=== PATIENT | female | born 2000 | race Caucasian/White ===

== ENCOUNTER 2024-04-23 21:56 | Emergency (ER) | payer BC, SELFPAY ==
[2024-04-23 22:00] VITALS: BP 99/86
[2024-04-23 22:26] LABS: % Basophils 0.2 % (0-2); % Eosinophils 0.3 % (0-6); % Immature Granulocytes 0.4 % (0-0.5); % Lymphocytes 4.1 % (20.5-51.1); % Monocytes 6.6 % (1.7-9.3); % Neutrophils 88.4 % (42.2-75.2); Absolute Eosinophils 0.1 10^3/uL (0-0.7); Absolute Immature Granulocytes 0.1 10^3/uL (0-0.05); Absolute Lymphocytes 0.8 10^3/uL (1.2-3.4); Absolute Monocytes 1.3 10^3/uL (0.1-0.6); Absolute Neutrophils 17.9 10^3/uL (1.4-6.5); Hematocrit 41.9 % (37.0-47.0); Hemoglobin 13.9 g/dL (12.0-16.0); Mean Corp Hgb Conc. 33.2 g/dL (33.0-37.0); Mean Corpuscular Hgb 27.3 pg (27.0-31.0); Mean Corpuscular Volume 82.2 fL (81.0-99.0); Mean Platelet Volume 9.6 fL (7.4-10.4); Nucleated Red Blood Cells % 0 %; Platelet Count 366 10^3/uL (130-400); Red Cell Dist. Width 12.9 % (11.5-14.5); White Blood Cell Count 20.2 10^3/uL (4.8-10.8)
[2024-04-23 22:35] LABS: HCG, Serum Qualitative Screen Negative
[2024-04-23 22:41] LABS: ALT (SGPT) 27 U/L (0-35); AST (SGOT) 23 U/L (14-36); Alkaline Phosphatase 70 U/L (38-126); Blood Urea Nitrogen 14 mg/dl (7-17); Calcium 9.6 mg/dl (8.4-10.2); Carbon Dioxide 23 mmol/L (22-30); Chloride 100 mmol/L (98-107); Glucose 122 mg/dl (70-99); Potassium 3.8 mmol/L (3.5-5.1); Sodium 136 mmol/L (135-145); Total Bilirubin 0.4 mg/dl (0.2-1.3); Total Protein 8.3 g/dl (6.3-8.2); eGFR > 60.00
--- NOTE | 2024-04-24 00:27 | ED.GENMED ---
History of Present Illness
General
Chief Complaint: Headache
Source: patient and family
Exam Limitations: none
Time Seen by Provider: 04/23/24 23:51
History of Present Illness
History of Present Illness:
This is a 23 year old female that comes in with c/o headache. State that she started with a headache on Monday. States that this was a sharp pain and pressure in her hear. States that with all her problems she thought she would rest and it would
go away. States that it never got better, it got worse. States that it goes form the front of her head, sometimes down into her face and all over her head. States that this is different then her migraines. States that she is always SOB that this has
been going on for a year. States that she has been nauseated and vomited once tonight and had diarrhea once today. States that she feel lightheaded with the headache. States that she also has some left sided low back discomfort. Denies any fever,
chills, chest pain, abd pain, urinary burning.
Past History
Past History
ED Past Medical History: Other (Migraines, loss of memory); Negative Asthma, HTN, Hypercholesterolemia or NIDDM
ED Past Surgical History: Other (Myringotomy tubes)
Social History
Tobacco: Non-smoker
Alcohol: None
Personal: Single
Living: with family
Review of Systems
Review of Systems
All Other Systems: ROS reviewed and negative except as documented in HPI and ROS
Constitutional: Reports no symptoms; Denies fever or chills
EENT: Reports no symptoms
Respiratory: Reports trouble breathing (Chronic); Denies cough
Cardiac: Denies chest pain
ABD/GI: Reports nausea, vomiting and diarrhea; Denies abdominal pain
: Reports no symptoms; Denies dysuria or urgency
Musculoskeletal: Reports no symptoms
Skin: Reports no symptoms
Neurological: Reports headache and other (lightheaded)
Psychiatric: Reports no symptoms
Phy Exam
General Physical Exam
General Presentation: no apparent distress
General age: appears stated age
General Skin: warm and dry
General Habitus: normal
General Mental: alert
General Hydration: appears well hydrated
ENT Exam
ENT Exam: TM's normal, pharynx normal and neck supple
Eye Exam
Eye Exam: EOMI
Cardiovascular Exam
Cardiovascular Exam: regular rate/rhythm, no edema, no murmur and normal peripheral pulses
Pulmonary Exam
Pulmonary Exam: no rales, chest non tender, no crackles, no rhonchi, no wheezing, no cough and decreased breath sounds
Gastrointestinal Exam
Gastrointestinal Exam: normal bowel sounds, non tender, soft, no organomegaly, no pulsatile mass, non distended and no cva tenderness
Musculoskeletal Exam
Musculoskeletal Exam: full ROM and no edema
Skin Exam
Skin Exam: normal color, warm/dry, no rash and no petechia
Psychiatric Exam
Psychiatric Exam: normal mood/affect
Course
Orders/Labs/Results
Orders:
Orders
04/23/24 22:06
EKG [Electrocardiogram (*1)] Urgent
Reason for Study: Vertigo / Dizzy
EKG- Treatment ONCE
Test Result ONCE
04/23/24 22:13
C-Reactive Protein Urgent
Comment: ADD ON
Complete Blood Count/With Diff Urgent
Comprehensive Metabolic Panel Urgent
Erythrocyte Sed Rate Urgent
Comment: ADD ON
HCG, Serum Qualitative Screen Urgent
04/23/24 23:53
Urinalysis Reflex To Culture Urgent
Date Specimen was Collected: 04/24/24
Time Specimen was Collected: 00:51
04/24/24 00:26
0.9% Sodium Chloride 1000 ml [Nss] 1,000 ml IV BOLUS
Acetaminophen 1000MG/100Ml [Ofirmev] 1,000 mg in 100 ml IV ONCE
Acetaminophen IV Indication:: ED Narcotic Naive Pt-ONCE
Dexamethasone Sod Phosphate [Decadron] 20 mg IV NOW STA
Ketorolac [Toradol] 30 mg IV NOW STA
Ondansetron Injectable [Zofran] 4 mg IV NOW STA
04/24/24 00:28
Add On- LAB Urgent
Tests Added?: Sed rate CRP
04/24/24 00:40
CT Head W/o Iv Contrast Urgent
Comment: Different then her migraines
Reason For Exam: Headache since monday
04/24/24 00:52
Urine Microscopic Reflex Cult Urgent
Abnormal Lab Results
04/23/24 04/24/24
22:13 00:52
WBC 20.2 H 10^3/uL
(4.8-10.8)
Abs Immat Gran (auto) 0.1 H 10^3/uL
(0-0.05)
Absolute Neuts (auto) 17.9 H 10^3/uL
(1.4-6.5)
Absolute Lymphs (auto) 0.8 L 10^3/uL
(1.2-3.4)
Absolute Monos (auto) 1.3 H 10^3/uL
(0.1-0.6)
Neutrophils % 88.4 H %
(42.2-75.2)
Lymphocytes % 4.1 L %
(20.5-51.1)
Glucose 122 H mg/dl
(70-99)
Total Protein 8.3 H g/dl
(6.3-8.2)
Urine Ketones 3+ A
(Negative)
Ur Occult Blood Reflex 1+ A
(Negative)
04/23/24 22:13
04/23/24 22:13
Leukocytosis (dad states that this is chronic), hyperglycemia, Total protein slightly elevated. HCG negative
Vital Signs
Initial and Last Documented VS:
Initial Vital Signs
Temp Pulse Resp BP Pulse Ox
97.8 F 68 17 99/86 96
04/23/24 22:00 04/23/24 22:00 04/23/24 22:00 04/23/24 22:00 04/23/24 22:00
Last Documented Vital Signs
Temp Pulse Resp BP Pulse Ox
97.8 F 68 17 99/86 96
04/23/24 22:00 04/23/24 22:00 04/23/24 22:00 04/23/24 22:00 04/23/24 22:00
MDM/Problems Addressed
Differential Diagnosis Includes:
Migraines.
MDM/Problems Addressed:
This is a 23 year old female that comes in with c/o headache that started since Monday. States that this is different then her normal migraine pain. Dad states that her SOB is also chronic and she has been everywhere for them to figured this out
as it started a year ago after the memory loss form a Kidney infection.
Will check labs. CT head, Give IV fluids and pain medication for patient headache.
Back into see patient. Explained that her CT of the head is normal. Her blood work shows the elevation of the WBC which patient Dad states that this has been up. Patient urine is negative for infection but does have some blood. Encouraged patient
to increase her water intake to 8-8oz glasses daily. Follow up with the Neurologist as scheduled. Return with any concerns.
Chronic conditions affecting care:
Migraines
Acute Exacerbation and/or Progression of Chronic Illness:
Migraines
*Radiology
Radiology exam reviewed: radiology read reviewed (CT head night hawk- No acute hemorrhage, herniation, or hydrocephalus. No calvarial fracture. The visualized paranasla sinuses and mastoid air cells are clear. )
*Pulse Oximetry
Patient hypoxic: no
*EKG
Interpreted by ED Provider?: Yes
Heart Rate: 107
Rate: tachycardiac
Rhythm: sinus tachycardia
[place]: normal axis
Interval: normal interval
QRS Pattern: normal QRS
Ischemia: no ischemia
*Pile D[employer] [place]zzleman Interpretation
Rate: P[place] D[employer] [place]zzleman- N/A
*Critical Care Note
Total Time (30-74mins, 75-104mins- exclusive of procedures): Not Applicable
ED Attending Note
-
Portions of this chart may have been created with voice recognition software.� Occasional wrong word or��sound alike� substitutions may have occurred due to the inherent limitations of voice recognition software.
Discharge Plan
Departure
Patient Disposition: Home (Routine Discharge)
Date of Disposition: 04/24/24
Time of Disposition: 02:08
Patient with high blood pressure during this ER visit?: No
Condition: Good
Covid-19: Not Applicable
Discharge Problem:
Headache
Instructions: Headache, Adult (DC)
Referrals:
Janice Mcgovern MD [Family Provider] - Follow up in 2-3 days
Activity Restrictions/Additional Instructions:
As discussed, your blood work shows that elevation of the White blood cells. Your inflammatory markers are normal. Your urine is negative for infection. However there is some blood noted. Please increase your water intake to 8-8oz glasses daily.
You may use Tylenol 1000mg every 6 hours for headache pain and alternate with Ibuprofen 600mg every 6 hours with food for pain. Follow up with the family doctor for recheck. IF YOU HAVE ANY OTHER CONCERN PLEASE RETURN TO THE EMERGENCY ROOM .
Interventions
Interventions:
*Risk Screen - Suicide Last Done: 04/23/24 22:05
*General Assessment Last Done: 04/23/24 22:05
*Neglect/Abuse Screening Last Done: 04/23/24 22:05
*ED COVID-19 Vaccine History Last Done: 04/23/24 22:05
Discharge Date and Time
Print Language: CHADIAN
[2024-04-24 00:43] VITALS: BMI 32.5
[2024-04-24 01:00] VITALS: BP 106/82
[2024-04-24] MEDS: DECADRON 20 MG IV (01:22)
[2024-04-24] MEDS: ZOFRAN 4 MG IV (01:22)
[2024-04-24] MEDS: TORADOL 30 MG IV (01:23)
[2024-04-24] MEDS: OFIRMEV 100 IV (01:26)
[2024-04-24] MEDS: NSS 1000 IV (01:27)
[2024-04-24 01:34] LABS: Erythrocyte Sed Rate 12 mm/hour (0-20)
[2024-04-24 01:49] LABS: Urine Albumin Trace (Neg - Trace); Urine Bilirubin Negative (Negative); Urine Character Clear (Clear); Urine Color Yellow; Urine Glucose Negative (Negative); Urine Ketone 3+ (Negative); Urine Leukocyte Negative (Negative); Urine Nitrite Negative (Negative); Urine Occult Blood 1+ (Negative); Urine Specific Gravity 1.015 (<1.030); Urine Urobilinogen Negative (Neg - 1+)
[2024-04-24 02:27] LABS: Urine Amorphous Seen; Urine Bacteria Many (Negative); Urine Mucus Moderate; Urine Squamous Cell >30 /LPF (Few)
[2024-04-24 02:53] VITALS: BP 106/78
== END 2024-04-24 02:57 | disposition home or self-care (01) ==
LOC: EMR 21:56
PROVIDERS: Clinical Nurse Specialist Family Health; Emergency Medicine; EMERGENCY PHYSICIAN Student in an Organized Health Care Education/Training Program; FAMILY PHYSICIAN Family Medicine
DX: R51.9 Headache, unspecified (principal); R11.2 Nausea with vomiting, unspecified
CPT/HCPCS: 96374; 96375; 96361; 99284; 70450; 80053; 81003; 81015; 84703; 85025; 85652; 86140; 87086; 93005